=== PATIENT | male | born 1975 | race Caucasian/White ===

== ENCOUNTER 2019-02-12 11:25 | Observation (INO) | payer OTHER ==
[2019-02-12] VITALS (16 sets, daily range): BP systolic 120–184; BP diastolic 77–100
[~2019-02-12] VITALS: Ht 188 cm; Wt 140.0 kg
[2019-02-12] MEDS ORDERED: ASPIRIN 81 MG CHEW (CHILDREN'S ASA) PO ONE (12:15)
[2019-02-12] MEDS ORDERED: NITROGLYCERIN 0.4 MG SL TABS BTL 25'S SL PRN ×2 (12:15→14:45)
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
[2019-02-12 12:20] LABS: BASOPHILS % (AUTO) 0 % (0-10); EOSINOPHILS # (AUTO) 0.2 10^3/uL (0.0-0.3); EOSINOPHILS % (AUTO) 3 % (0-10); HEMATOCRIT 45 % (40-54); HEMOGLOBIN 15.3 G/DL (13.3-17.7); LYMPHOCYTES # (AUTO) 1.9 X 10^3 (1.0-4.0); LYMPHOCYTES % (AUTO) 29 % (12-44); MEAN CORPUSCULAR HEMOGLOBIN 28 PG (25-34); MEAN CORPUSCULAR HGB CONC 34 G/DL (32-36); MEAN CORPUSCULAR VOLUME 82 FL (80-99); MEAN PLATELET VOLUME 10.7 FL (7.4-10.4); MONOCYTES # (AUTO) 0.8 X 10^3 (0.0-1.0); MONOCYTES % (AUTO) 12 % (0-12); NEUTROPHILS # (AUTO) 3.7 X 10^3 (1.8-7.8); NEUTROPHILS % (AUTO) 56 % (42-75); PLATELET COUNT 243 10^3/uL (130-400); RED CELL DISTRIBUTION WIDTH 13.5 % (10.0-14.5); WHITE BLOOD COUNT 6.6 10^3/uL (4.3-11.0)
[2019-02-12 12:26] LABS: BILIRUBIN,URINE NEGATIVE (NEGATIVE); CLARITY,URINE CLEAR; COLOR,URINE YELLOW; GLUCOSE, URINE (UA) 3+ (NEGATIVE); KETONES,URINE 1+ (NEGATIVE); LEUKOCYTE ESTERASE ,URINE NEGATIVE (NEGATIVE); NITRITE,URINE NEGATIVE (NEGATIVE); PH,URINE 5 (5-9); PROTEIN,URINE 1+ (NEGATIVE); UROBILINOGEN,URINE 1 MG/DL (NORMAL)
[2019-02-12 12:32] LABS: BACTERIA,URINE NEGATIVE /HPF; WBC,URINE RARE /HPF
[2019-02-12 12:34] LABS: ALANINE AMINOTRANSFERASE 93 U/L (0-55); ALBUMIN 4.6 GM/DL (3.2-4.5); ALKALINE PHOSPHATASE 73 U/L (40-136); BILIRUBIN,TOTAL 0.7 MG/DL (0.1-1.0); BUN/CREATININE RATIO 13; CALCIUM 9.6 MG/DL (8.5-10.1); CARBON DIOXIDE 25 MMOL/L (21-32); CHLORIDE 102 MMOL/L (98-107); CREATININE SERUM 0.95 MG/DL (0.60-1.30); GFR ESTIMATED > 60; GLUCOSE 237 MG/DL (70-105); MAGNESIUM 1.8 MG/DL (1.6-2.4); SODIUM 139 MMOL/L (135-145); TOTAL PROTEIN 7.7 GM/DL (6.4-8.2)
[2019-02-12 12:35] LABS: INR 0.9 (0.8-1.4)
[2019-02-12 12:47] LABS: AMPHETAMINE SCREEN, URINE NEGATIVE (NEGATIVE); BARBITURATE SCREEN URINE NEGATIVE (NEGATIVE); BENZODIAZEPINES SCREEN URINE NEGATIVE (NEGATIVE); CANNABINOID SCREEN, URINE NEGATIVE (NEGATIVE); COCAINE SCREEN URINE NEGATIVE (NEGATIVE); METHADONE STAT NEGATIVE (NEGATIVE); METHAMPHETAMINE SCREEN URINE S NEGATIVE (NEGATIVE); OPIATE SCREEN URINE NEGATIVE (NEGATIVE); OXYCODONE STAT NEGATIVE (NEGATIVE); PROPOXYPHENE STAT NEGATIVE (NEGATIVE); TRICYCLIC ANTIDEPRESSANTS SCRE NEGATIVE (NEGATIVE)
--- NOTE | 2019-02-12 12:47 | Diagnostic Imaging Report ---
INDICATION: Chest pain. Time of exam 12:22 PM Correlation is made with prior chest 05/25/2016. The heart size is normal. The pulmonary vascularity is unremarkable. The lungs are clear. No infiltrate, effusion or pneumothorax is detected. Impression: No acute cardiopulmonary process is detected. Dictated by: Dictated on workstation # [id number]
[2019-02-12] MEDS ORDERED: CATHETER FLUSH 10 ML SYR IV PRN (14:45)
[2019-02-12] MEDS ORDERED: ACETAMINOPHEN 500 MG TAB (TYLENOL) PO PRN (14:45)
--- NOTE | 2019-02-12 15:08 | NUR ---
HUMPHREY LOZANO admitted to room 409-1, with an admitting diagnosis of chest pain, on 02/12/19 from ED via wheelchair, accompanied by staff. HUMPHREY LOZANO introduced to surroundings, call light, bed controls, phone, TV, temperature control, lights, meal times, smoking policy, visitor policy, side rail policy, bathrooms and showers. Patient Rights given to patient in the handbook. HUMPHREY LOZANO verbalizes understanding that [facility] is not responsible for the loss or damage to any personal effects or valuables that are kept in the patients possession during their hospitalization. The following Patient Care Plans were discussed with the patient: Discharge Planning, pain management, medications, and dehydration. HUMPHREY LOZANO verbalizes understanding of Interdisciplinary Patient Education. Patient and/or family were informed about the Rapid Response Team and its purpose.
[2019-02-12] MEDS: inSUlin ASPART (NovoLOG) 1 UNIT/0.01 ML (CHARGE PER UNIT) SC SCH ×2 (16:33→22:11)
[2019-02-12] MEDS: morphine INJ 10 MG/ML 1ML (SYR OR VIAL) IV PRN ×2 (17:21→22:30)
[2019-02-12] MEDS: meTOprolol TARTRATE 25 MG (LOPRESSOR) TABLET PO SCH (22:10)
[2019-02-12] MEDS: CATHETER FLUSH 10 ML SYR IV SCH (22:12)
[2019-02-13 00:45] VITALS: BP 111/64
[2019-02-13 04:30] VITALS: BP 117/62
[2019-02-13 06:54] LABS: BASOPHILS % (AUTO) 0 % (0-10); EOSINOPHILS # (AUTO) 0.3 10^3/uL (0.0-0.3); EOSINOPHILS % (AUTO) 4 % (0-10); HEMATOCRIT 43 % (40-54); HEMOGLOBIN 14.3 G/DL (13.3-17.7); LYMPHOCYTES # (AUTO) 2.5 X 10^3 (1.0-4.0); LYMPHOCYTES % (AUTO) 36 % (12-44); MEAN CORPUSCULAR HEMOGLOBIN 28 PG (25-34); MEAN CORPUSCULAR HGB CONC 34 G/DL (32-36); MEAN CORPUSCULAR VOLUME 82 FL (80-99); MEAN PLATELET VOLUME 10.6 FL (7.4-10.4); MONOCYTES # (AUTO) 0.6 X 10^3 (0.0-1.0); MONOCYTES % (AUTO) 9 % (0-12); NEUTROPHILS # (AUTO) 3.5 X 10^3 (1.8-7.8); NEUTROPHILS % (AUTO) 51 % (42-75); PLATELET COUNT 230 10^3/uL (130-400); RED CELL DISTRIBUTION WIDTH 13.6 % (10.0-14.5); WHITE BLOOD COUNT 6.8 10^3/uL (4.3-11.0)
[2019-02-13 07:25] LABS: ALANINE AMINOTRANSFERASE 80 U/L (0-55); ALBUMIN 3.9 GM/DL (3.2-4.5); ALKALINE PHOSPHATASE 59 U/L (40-136); BILIRUBIN,TOTAL 0.7 MG/DL (0.1-1.0); BUN/CREATININE RATIO 15; CALCIUM 8.9 MG/DL (8.5-10.1); CARBON DIOXIDE 25 MMOL/L (21-32); CHLORIDE 103 MMOL/L (98-107); CHOLESTEROL 146 MG/DL (< 200); CREATININE SERUM 0.81 MG/DL (0.60-1.30); GFR ESTIMATED > 60; GLUCOSE 266 MG/DL (70-105); HDL CHOLESTEROL 49 MG/DL (40-60); POTASSIUM 4.1 MMOL/L (3.6-5.0); SODIUM 137 MMOL/L (135-145); TOTAL PROTEIN 6.7 GM/DL (6.4-8.2); TRIGLYCERIDES 64 MG/DL (<150); VLDL CHOLESTEROL 13 MG/DL (5-40)
[2019-02-13 07:32] VITALS: BP 117/58
[2019-02-13] MEDS: inSUlin ASPART (NovoLOG) 1 UNIT/0.01 ML (CHARGE PER UNIT) SC SCH ×4 (07:42→20:25)
[2019-02-13] MEDS: CATHETER FLUSH 10 ML SYR IV SCH ×3 (07:43→22:40)
--- NOTE | 2019-02-13 09:30 | Consultation-Cardiology ---
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 He reports he woke up yesterday morning and began to have left sided chest pain which he describes as a squeezing, sharp stabbing, heaviness type of pain. He reports it was constant and would wax and wane. He states had similar discomfort on and Wednesday, but he went to sleep and it went away. He states activity would make it worse. He reports some diaphoresis with the discomfort. He states it improved with the administration of morphine. He reports the pain has never gone away completely and the right arm numbness has also persisted. He denies any LE swelling. No c/o fever or chills. No c/o n/v/d. No c/o palpitations, syncope or near syncope. His significant other is at the bedside. Review of Systems-Cardiology Review of Systems Constitutional: No chills, No fever Eyes: No vision change Ears/Nose/Throat: No epistaxis, No recent hearing loss Respiratory: As described under HPI Cardiovascular: As described under HPI Gastrointestinal: No constipation, No diarrhea, No nausea, No vomiting Genitourinary: No dysuria, No hematuria Musculoskeletal: As describe under HPI Skin: No rash on exposed areas, No ulcerations on exposed areas Psychiatric/Neurological: No focal weakness, No syncope Hematologic: No bleeding abnormalities WHS-Icynjx-Zcsjyy Hx Patient Social History Alcohol Use: Denies Use Recreational Drug Use: No Smoking Status: Never a Smoker Recent Foreign Travel: No Recent Infectious Disease Expo: No Hospitalization with Isolation: Denies Immunizations Up To Date Date of Influenza Vaccine: Feb 07, 2019 Past Medical History PMH As described under Assessment. Family Medical History Family Medical History: He reports his mother has CAD, diagnosed at age 40, with 5 stents placed. He reports she also has PVD, smokes. He reports his father had PVD, smokes as well. Allergies and Home Medications Allergies Coded Allergies: Penicillins (Verified Allergy, Unknown, Hives, 02/12/19) PER PATIENT REPORT lisinopril (Verified Allergy, Unknown, Hives, 02/12/19) PATIENT REPORTS HIVES Home Medications Insulin Degludec 100 Unit/1 Ml Insuln.pen, 18 UNIT SQ HS, (Reported) Metformin HCl 500 Mg Tab.er.24h, 2,000 MG PO DAILY, (Reported) TAKES 4 (500MG) TABLETS Sitagliptin Phosphate 100 Mg Tablet, 100 MG PO DAILY, (Reported) Physical Exam-Cardiology Physical Exam Vital Signs/I&O 02/13/19 02/13/19 02/14/19 02/14/19 20:30 20:31 00:20 01:00 Temp 36.5 36.0 Pulse 73 70 52 Resp 20 20 B/P (MAP) 135/78 (97) 110/59 (76) Pulse Ox 95 95 92 O2 Delivery Room Air Room Air Room Air 02/14/19 02/14/19 02/14/19 03:50 07:39 07:39 Temp 36.6 35.7 35.7 Pulse 58 62 62 Resp 20 14 14 B/P (MAP) 120/60 (80) 118/78 (91) 118/78 (91) Pulse Ox 95 95 95 O2 Delivery Room Air Room Air Room Air 02/14/19 00:00 Intake Total 1250 ml Balance 1250 ml Capillary Refill : Less Than 3 Seconds Constitutional: AAO x 3; No apparent distress; well-developed, well-nourished HEENT: PERRL, hearing is well preserved, oral hygience is good Neck: No carotid bruit; carotid pulses are 2 + bilaterally Respiratory: No accessory muscle use, No respiratory distress; chest expansion is symmetric, chest is bilaterally symmetric, lungs clear to auscultation Cardiovascular: regular rate-rhythm; No JVD; S1 and S2 Gastrointestinal: No tender; soft, round, audible bowel sounds Rectal: deferred Extremities: no lower extremity edema bilateral Neurologic/Psychiatric: grossly intact, power is 5/5 both on sides Skin: No rash on exposed areas, No ulcerations on exposed areas Data Review Labs Laboratory Tests 02/13/19 10:44: Glucometer 196H 02/13/19 15:39: Glucometer 223H 02/14/19 05:10: White Blood Count 7.1, Red Blood Count 5.02, Hemoglobin 14.0, Hematocrit 42, Mean Corpuscular Volume 83, Mean Corpuscular Hemoglobin 28, Mean Corpuscular Hemoglobin Concent 34, Red Cell Distribution Width 13.5, Platelet Count 218, Mean Platelet Volume 10.5H, Erythrocyte Sedimentation Rate 6, Sodium Level 136, Potassium Level 4.2, Chloride Level 103, Carbon Dioxide Level 24, Anion Gap 9, Blood Urea Nitrogen 14, Creatinine 0.81, Estimat Glomerular Filtration Rate > 60, BUN/Creatinine Ratio 17, Glucose Level 208H, Calcium Level 9.0, Corrected Calcium 9.0, Total Bilirubin 0.7, Aspartate Amino Transf (AST/SGOT) 30, Alanine Aminotransferase (ALT/SGPT) 77H, Alkaline Phosphatase 63, Total Protein 6.5, Albumin 4.0 Radiology NAME: HUMPHREY PICKERING [facility] REC#: [id number] PT STATUS: REG ER : 1975 PHYSICIAN: JOE BECKFORD MD ADMIT DATE: 02/12/19/ER Signed Date of Exam: 02/12/19 CHEST 1 VIEW, AP/PA ONLY INDICATION: Chest pain. Time of exam 12:22 PM Correlation is made with prior chest 05/25/2016. The heart size is normal. The pulmonary vascularity is unremarkable. The lungs are clear. No infiltrate, effusion or pneumothorax is detected. Impression: No acute cardiopulmonary process is detected. Dictated by: Dictated on workstation # [id number] Dict: 02/12/19 1242 Trans: 02/12/19 1253 Interpreted by: CYNDEE BARTLETT MD Electronically signed by: CYNDEE BARTLETT MD 02/12/19 1253 ECG Impression ECG Initial ECG Rhythm: Normal Sinus A/P-Cardiology Assessment/Admission Diagnosis Chest pain with associated left arm numbness of undetermined etiology Reports cardiac cath in [address] Samaniego at [place] in [place], [place] - reported normal per pt H/O lower back surgery in [place], [place] d/t bulging disc dz DM 2 H/O right inguinal hernia repair H/O "fatty liver disease" with chronically elevated liver enzymes Chew tobacco use H/O right ankle surgery H/O ETOH abuse - reports quit 3 weeks ago Family h/o premature CAD, PVD (mother in her 40's) Discussion and Recomendations Chest pain of undetermined etiology - no evidence of ACS Request records from Dr. Samaniego cardiac cath from approx 2 years ago Echocardiogram to eval structure and function Monitor lab Further recs will be based on his hospital course Advise tobacco cessation We would like to thank medical services for this consult Clinical Quality Measures AMI/AHF: ASA po Prior to arrival: Yes (81MG) DVT/VTE Risk/Contraindication: Risk Factor Score Per Nursin RFS Level Per Nursing on Admit: 2=Moderate GRISELDA AUGUSTIN Feb 13, 2019 09:30
[2019-02-13] MEDS: ASPIRIN E.C. 81 MG (ECOTRIN) TAB PO SCH (09:34)
[2019-02-13] MEDS: lisINopril 5 MG (PRINIVIL) TABLET PO SCH (09:34)
[2019-02-13] MEDS: meTOprolol TARTRATE 25 MG (LOPRESSOR) TABLET PO SCH ×2 (09:34→20:14)
[2019-02-13] MEDS: morphine INJ 10 MG/ML 1ML (SYR OR VIAL) IV PRN ×3 (10:15→20:25)
[2019-02-13] MEDS ORDERED: REGADENOSON 0.4 MG/5 ML SYR (LEXISCAN) IV ONE (11:00)
[2019-02-13] MEDS ORDERED: SITA100T12 PO (11:12)
[2019-02-13] MEDS ORDERED: INSU100I32 SQ (11:12)
[2019-02-13] MEDS ORDERED: METF500T8 PO (11:12)
[2019-02-13] MEDS ORDERED: NS 100 ML (IVPB) BAG IV ONE (11:15)
[2019-02-13] MEDS ORDERED: IOHEXOL 350 MG/ML 150 ML (OMNIPAQUE 350) VIAL IV ONE (11:15)
[2019-02-13] MEDS ORDERED: HOLD METFORMIN - RECEIVED CONTRAST 20 ML VIAL IV SCH (11:15)
--- NOTE | 2019-02-13 11:16 | NUR ---
SPOKE WITH THE PATIENT ABOUT HIS MEDICATIONS. HE LISTED WHAT HE IS TAKING AND I CALLED BRIEN IN [place] TO VERIFY. 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
[2019-02-13 12:00] VITALS: BP 118/60
--- NOTE | 2019-02-13 12:48 | Consultation-Cardiology ---
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 He reports he woke up yesterday morning and began to have left sided chest pain which he describes as a squeezing, sharp stabbing, heaviness type of pain. He reports it was constant and would wax and wane. Worse with deep breathing. He states had similar discomfort on and Wednesday, but he went to sleep and it went away. He states activity would make it worse. He reports some diaphoresis with the discomfort. He states it improved with the administration of morphine. He reports the pain has never gone away completely and the right arm numbness has also persisted. He denies any LE swelling. No c/o fever or chills. No c/o n/v/d. No c/o palpitations, syncope or near syncope. His significant other is at the bedside. Review of Systems-Cardiology Review of Systems Constitutional: No chills, No fever Eyes: No vision change Ears/Nose/Throat: No epistaxis, No recent hearing loss Respiratory: As described under HPI Cardiovascular: As described under HPI Gastrointestinal: No constipation, No diarrhea, No nausea, No vomiting Genitourinary: No dysuria, No hematuria Musculoskeletal: As describe under HPI Skin: No rash on exposed areas, No ulcerations on exposed areas Psychiatric/Neurological: No focal weakness, No syncope Hematologic: No bleeding abnormalities [id number]-Noyidk Hx Patient Social History Alcohol Use: Denies Use Recreational Drug Use: No Smoking Status: Never a Smoker Recent Foreign Travel: No Recent Infectious Disease Expo: No Hospitalization with Isolation: Denies Immunizations Up To Date Date of Influenza Vaccine: Feb 07, 2019 Past Medical History PMH As described under Assessment. Family Medical History Family Medical History: He reports his mother has CAD, diagnosed at age 40, with 5 stents placed. He reports she also has PVD, smokes. He reports his father had PVD, smokes as well. Allergies and Home Medications Allergies Coded Allergies: Penicillins (Verified Allergy, Unknown, Hives, 02/12/19) PER PATIENT REPORT lisinopril (Verified Allergy, Unknown, Hives, 02/12/19) PATIENT REPORTS HIVES Home Medications Insulin Degludec 100 Unit/1 Ml Insuln.pen, 18 UNIT SQ HS, (Reported) Metformin HCl 500 Mg Tab.er.24h, 2,000 MG PO DAILY, (Reported) TAKES 4 (500MG) TABLETS Sitagliptin Phosphate 100 Mg Tablet, 100 MG PO DAILY, (Reported) Patient Home Medication List Home Medication List Reviewed: Yes Physical Exam-Cardiology Physical Exam Vital Signs/I&O 02/13/19 02/13/19 02/13/19 02/13/19 00:45 01:00 04:30 07:00 Temp 36.0 35.4 Pulse 63 64 64 58 Resp 20 20 B/P (MAP) 111/64 (80) 117/62 (80) Pulse Ox 96 96 O2 Delivery Room Air Room Air 02/13/19 07:32 Temp 36.3 Pulse 58 Resp 17 B/P (MAP) 117/58 (77) Pulse Ox 93 O2 Delivery Room Air 02/13/19 00:00 Intake Total 800 ml Balance 800 ml Capillary Refill : Less Than 3 Seconds Constitutional: AAO x 3; No apparent distress; well-developed, well-nourished HEENT: PERRL, hearing is well preserved, oral hygience is good Neck: No carotid bruit; carotid pulses are 2 + bilaterally Respiratory: No accessory muscle use, No respiratory distress; chest expansion is symmetric, chest is bilaterally symmetric, lungs clear to auscultation Cardiovascular: regular rate-rhythm; No JVD; S1 and S2 Gastrointestinal: No tender; soft, round, audible bowel sounds Rectal: deferred Extremities: no lower extremity edema bilateral Neurologic/Psychiatric: grossly intact, power is 5/5 both on sides Skin: No rash on exposed areas, No ulcerations on exposed areas Data Review Labs Laboratory Tests 02/12/19 16:23: Glucometer 190H 02/12/19 17:50: Troponin I < 0.028 02/12/19 21:28: Glucometer 214H 02/13/19 00:25: Troponin I < 0.028 02/13/19 04:04: Glucometer 319H 02/13/19 06:15: White Blood Count 6.8, Red Blood Count 5.19, Hemoglobin 14.3, Hematocrit 43, Mean Corpuscular Volume 82, Mean Corpuscular Hemoglobin 28, Mean Corpuscular Hemoglobin Concent 34, Red Cell Distribution Width 13.6, Platelet Count 230, Mean Platelet Volume 10.6H, Neutrophils (%) (Auto) 51, Lymphocytes (%) (Auto) 36, Monocytes (%) (Auto) 9, Eosinophils (%) (Auto) 4, Basophils (%) (Auto) 0, Neutrophils # (Auto) 3.5, Lymphocytes # (Auto) 2.5, Monocytes # (Auto) 0.6, Eosinophils # (Auto) 0.3, Basophils # (Auto) 0.0, Sodium Level 137, Potassium Level 4.1, Chloride Level 103, Carbon Dioxide Level 25, Anion Gap 9, Blood Urea Nitrogen 12, Creatinine 0.81, Estimat Glomerular Filtration Rate > 60, BUN/Creatinine Ratio 15, Glucose Level 266H, Calcium Level 8.9, Corrected Calc ium 9.0, Total Bilirubin 0.7, Aspartate Amino Transf (AST/SGOT) 36H, Alanine Aminotransferase (ALT/SGPT) 80H, Alkaline Phosphatase 59, Total Protein 6.7, Albumin 3.9, Triglycerides Level 64, Cholesterol Level 146, LDL Cholesterol Direct 86, VLDL Cholesterol 13, HDL Cholesterol 49 02/13/19 06:18: Glucometer 243H 02/13/19 10:44: Glucometer 196H Laboratory Tests 02/12/19 11:34 02/13/19 06:15 A/P-Cardiology Assessment/Admission Diagnosis Pleuritic chest pain of undetermined etiology Reports cardiac cath in or around [address] Samaniego at [facility] in [place], [place] - reported normal per pt H/O lower back surgery in [place], [place] d/t bulging disc dz DM 2 H/O right inguinal hernia repair H/O "fatty liver disease" with chronically elevated liver enzymes Chew tobacco use H/O right ankle surgery H/O ETOH abuse - reports quit 3 weeks ago Family h/o premature CAD, PVD (mother in her 40's) Discussion and Recomendations * Request records from Dr. Samaniego cardiac cath from approx 2 years ago * Echocardiogram to eval structure and function * Monitor lab * Pulm CT angio to eval for pulm sources of chest discomfort * Consider MPI to eval for coronary source of chest pain * Advise tobacco cessation Clinical Quality Measures AMI/AHF: ASA po Prior to arrival: Yes (81MG) DVT/VTE Risk/Contraindication: Risk Factor Score Per Nursin RFS Level Per Nursing on Admit: 2=Moderate JAIRO BERRY MD FACP FACC CCDS Feb 13, 2019 12:48
--- NOTE | 2019-02-13 14:45 | Diagnostic Imaging Report ---
PROCEDURE: CT angiography of the chest with contrast. TECHNIQUE: Multiple contiguous axial images were obtained through the chest after uneventful bolus administration of intravenous contrast. 3D reconstructed CTA MIP acquisitions were also performed. Auto Exposure Controls were utilized during the CT exam to meet ALARA standards for radiation dose reduction. INDICATION: Chest pain and left arm pain. COMPARISON: No prior studies are available for comparison. FINDINGS: Evaluation of the pulmonary arterial system is without thromboembolism. No filling defects are seen within the central, lobar or segmental branches. The thoracic aorta is normal caliber. No dissection is seen. No pericardial or pleural fluid is identified. No pulmonary infiltrates or masses are seen. No axillary lymphadenopathy is identified. No definite mediastinal or hilar lymphadenopathy is detected. There is a questionable nodule in the right infrahilar region near the right inferior pulmonary vein measuring 16 mm. This is similar to prior CT abdomen and pelvis studies. Follow-up would be still be recommended. Upper abdomen is unremarkable. IMPRESSION: 1. No evidence of pulmonary embolism or thoracic aortic dissection. 2. No evidence of pulmonary infiltrates. 3. There is a rounded nodular density adjacent to the right inferior pulmonary vein measuring 16 mm, indeterminate. Follow-up CT chest in four to six months is recommended to confirm stability. Dictated by: Dictated on workstation # [id number]
--- NOTE | 2019-02-13 14:46 | History & Physical-Hospitalist ---
History of Present Illness HPI/Chief Complaint Lester Pickering is a 43yoM with PMH T2DM who presented with chest pain. He reports that he has been having pain with radiation to his arm, neck, and jaw. He reports some dyspnea associated with it. He denies nausea, vomiting, and diaphoresis. He reports that the pain is worsened by activity and improves when he rests. He has a history of a heart cath a couple years ago which was reportedly normal. 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 He denies leg swelling and pleuritic chest pain. He reports that he felt like he was having a "panic attack". Source: patient Date Seen 02/13/19 Time Seen by a Provider: 09:50 Attending Physician Lenora Paul MD PCP No,Local Physician Referring Physician JAIRO BERRY MD FACP FAC CCDS Date of Admission Feb 12, 2019 at 13:50 Home Medications & Allergies Home Medications Reviewed patient Home Medication Reconciliation performed by pharmacy medication reconciliations fresh foods technician and/or nursing. Patients Allergies have been reviewed. Allergies Allergies Coded Allergies Penicillins (Verified Allergy, Unknown, Hives, 02/12/19) PER PATIENT REPORT lisinopril (Verified Allergy, Unknown, Hives, 02/12/19) PATIENT REPORTS HIVES Past Witmkra-Cxxhqs-Zsmbfl Hx Past Med/Social Hx: Reviewed Nursing Past Med/Soc Hx Patient Social History Alcohol Use: Denies Use Recreational Drug Use: No Smoking Status: Never a Smoker Recent Foreign Travel: No Contact w/other who traveled: No Recent Hopitalizations: No Recent Infectious Disease Expo: No Immunizations Up To Date Date of Influenza Vaccine: Feb 07, 2019 Seasonal Allergies Seasonal Allergies: No Past Medical History Musculoskeletal: Arthritis Endocrine: Diabetes, Insulin dep History of Blood Disorders: No Review of Systems Constitutional: no symptoms reported EENTM: no symptoms reported Respiratory: no symptoms reported Cardiovascular: chest pain Gastrointestinal: no symptoms reported Genitourinary: no symptoms reported Musculoskeletal: no symptoms reported Skin: no symptoms reported Psychiatric/Neurological: No Symptoms Reported Physical Exam Physical Exam Vital Signs Vital Signs - First Documented 02/12/19 11:30 Temp 36.3 Pulse 85 Resp 19 B/P (MAP) 171/95 (120) Pulse Ox 95 O2 Delivery Room Air Capillary Refill : Less Than 3 Seconds Height, Weight, BMI Height: '" Weight: lbs. oz. kg; 39.61 BMI Method: General Appearance: No Apparent Distress, WD/WN, Obese HEENT: PERRL/EOMI, Pharynx Normal Neck: Normal Inspection, Supple Respiratory: No Chest Non Tender; Lungs Clear, Normal Breath Sounds, No Respiratory Distress Cardiovascular: Regular Rate, Rhythm, No Edema, No Murmur Gastrointestinal: Normal Bowel Sounds, Non Tender, Soft Extremity: Normal Inspection, Non Tender, No Pedal Edema Neurologic/Psychiatric: Alert, Oriented x3 Skin: Normal Color, Warm/Dry Lymphatic: No Adenopathy Results Results/Procedures Labs Laboratory Tests 02/12/19 11:34 02/13/19 06:15 Patient resulted labs reviewed. Imaging: Reviewed Imaging Report Assessment/Plan Admission Diagnosis Chest pain Admission Status: Observation Reason for Inpatient Admission: Rule out acute coronary syndrome Assessment and Plan Chest pain -Troponins remain normal -EKG sinus rhythm without ST-T changes -Cardiology consulted, appreciate recommendations -TTE normal, incidental liver lesion noted -D-dimer negative -CT chest with contrast to further evaluate for PE -Possible stress test tomorrow HTN -BP elevated on admission -Started on Lisinopril and Metoprolol Liver lesion Elevated LFTs -TTE with incidental liver lesion -Follow up CT, consider further imaging -LFTs mildly elevated, reportedly history of fatty liver T2DM -Levemir 10 units nightly -SSI DVT prophylaxis: Lovenox Diagnosis/Problems Diagnosis/Problems (1) Chest pain Status: Acute Qualifiers: Chest pain type: unspecified Qualified Codes: R07.9 - Chest pain, unspecified (2) HTN (hypertension) Status: Chronic (3) T2DM (type 2 diabetes mellitus) Status: Chronic Qualifiers: Diabetes mellitus residential insulin use: with terminal superintendent use (4) Liver lesion Status: Acute (5) Elevated LFTs Status: Acute Clinical Quality Measures AMI/AHF: ASA po Prior to arrival: Yes (81MG) DVT/VTE Risk/Contraindication: Risk Factor Score Per Nursin RFS Level Per Nursing on Admit: 2=Moderate ANAHI PADILLA MD Feb 13, 2019 14:46
[2019-02-13 16:00] VITALS: BP 119/76
[2019-02-13] MEDS: ONDANSETRON 4 MG/2 ML (SDV) Z0FRAN IV PRN ×2 (16:57→20:24)
[2019-02-13 20:31] VITALS: BP 135/78
[2019-02-13] MEDS ORDERED: MELATONIN 3 MG TABLET PO SCH (21:00)
[2019-02-13] MEDS ORDERED: ENOXAPARIN 40 MG/0.4 ML (LOVENOX) SYR SC SCH (21:00)
[2019-02-14 00:20] VITALS: BP 110/59
[2019-02-14 03:50] VITALS: BP 120/60
[2019-02-14 05:42] LABS: MEAN PLATELET VOLUME 10.5 FL (7.4-10.4); RED CELL DISTRIBUTION WIDTH 13.5 % (10.0-14.5); WHITE BLOOD COUNT 7.1 10^3/uL (4.3-11.0)
[2019-02-14] MEDS: CATHETER FLUSH 10 ML SYR IV SCH ×2 (05:42→14:17)
[2019-02-14] MEDS: inSUlin ASPART (NovoLOG) 1 UNIT/0.01 ML (CHARGE PER UNIT) SC SCH ×3 (05:43→17:11)
[2019-02-14 06:03] LABS: ALANINE AMINOTRANSFERASE 77 U/L (0-55); ALKALINE PHOSPHATASE 63 U/L (40-136); BILIRUBIN,TOTAL 0.7 MG/DL (0.1-1.0); BUN/CREATININE RATIO 17; CARBON DIOXIDE 24 MMOL/L (21-32); CHLORIDE 103 MMOL/L (98-107); CREATININE SERUM 0.81 MG/DL (0.60-1.30); GFR ESTIMATED > 60; GLUCOSE 208 MG/DL (70-105); POTASSIUM 4.2 MMOL/L (3.6-5.0); SODIUM 136 MMOL/L (135-145); TOTAL PROTEIN 6.5 GM/DL (6.4-8.2)
[2019-02-14 07:39] VITALS: BP 118/78
[2019-02-14] MEDS ORDERED: REGADENOSON 0.4 MG/5 ML SYR (LEXISCAN) IV ONE ×2 (08:37→09:30)
[2019-02-14] MEDS: ASPIRIN E.C. 81 MG (ECOTRIN) TAB PO SCH (10:57)
[2019-02-14] MEDS: meTOprolol TARTRATE 25 MG (LOPRESSOR) TABLET PO SCH (10:57)
[2019-02-14] MEDS: lisINopril 5 MG (PRINIVIL) TABLET PO SCH ×2 (10:57→10:59)
--- NOTE | 2019-02-14 10:59 | NUR ---
Patient states that lisinopril causes him to have hives. Medication non administered.
[2019-02-14 11:05] VITALS: BP 137/78
[2019-02-14] MEDS: morphine INJ 10 MG/ML 1ML (SYR OR VIAL) IV PRN (12:01)
--- NOTE | 2019-02-14 13:10 | Progress Note - Cardiology ---
Cardiology SOAP Progress Note Subjective: Continues to report chest discomfort, unchanged from yesterday. No c/o dyspnea, palpitations, syncope or near syncope. Objective: I&O/Vital Signs 02/14/19 02/14/19 02/14/19 02/14/19 06:51 07:39 07:39 08:00 Temp 35.7 35.7 Pulse 59 62 62 Resp 14 14 B/P (MAP) 118/78 (91) 118/78 (91) Pulse Ox 95 95 99 O2 Delivery Room Air Room Air Room Air 02/14/19 02/14/19 02/14/19 02/14/19 11:05 11:05 12:48 15:49 Temp 35.8 35.8 35.8 Pulse 59 59 62 64 Resp 16 16 16 B/P (MAP) 137/78 (97) 139/78 (98) Pulse Ox 99 99 98 O2 Delivery Room Air Room Air Room Air 02/14/19 17:12 B/P (MAP) 02/14/19 00:00 Intake Total 1250 ml Balance 1250 ml Constitutional: AAO x 3; No apparent distress; well-developed, well-nourished Respiratory: No accessory muscle use, No respiratory distress; chest expansion is symmetric, chest is bilaterally symmetric, lungs clear to auscultation Cardiovascular: regular rate-rhythm; No JVD; S1 and S2 Gastrointestional: No tender; soft, round, audible bowel sounds Extremities: no lower extremity edema bilateral Neurologic/Psychiatric: grossly intact, power is 5/5 both on sides Skin: No rash on exposed areas, No ulcerations on exposed areas Results/Procedures: Labs Laboratory Tests 02/14/19 05:10: White Blood Count 7.1, Red Blood Count 5.02, Hemoglobin 14.0, Hematocrit 42, Mean Corpuscular Volume 83, Mean Corpuscular Hemoglobin 28, Mean Corpuscular Hemoglobin Concent 34, Red Cell Distribution Width 13.5, Platelet Count 218, Mean Platelet Volume 10.5H, Erythrocyte Sedimentation Rate 6, Sodium Level 136, Potassium Level 4.2, Chloride Level 103, Carbon Dioxide Level 24, Anion Gap 9, Blood Urea Nitrogen 14, Creatinine 0.81, Estimat Glomerular Filtration Rate > 60, BUN/Creatinine Ratio 17, Glucose Level 208H, Calcium Level 9.0, Corrected Calcium 9.0, Total Bilirubin 0.7, Aspartate Amino Transf (AST/SGOT) 30, Alanine Aminotransferase (ALT/SGPT) 77H, Alkaline Phosphatase 63, Total Protein 6.5, Albumin 4.0 Procedures NAME: [facility] REC#: [id number] PT STATUS: ADM Vivienne : 1975 PHYSICIAN: GRISELDA AUGUSTIN ADMIT DATE: 02/12/19 Signed Date of Exam: 02/13/19 CT ANGIO CHEST W PROCEDURE: CT angiography of the chest with contrast. TECHNIQUE: Multiple contiguous axial images were obtained through the chest after uneventful bolus administration of intravenous contrast. 3D reconstructed CTA MIP acquisitions were also performed. Auto Exposure Controls were utilized during the CT exam to meet ALARA standards for radiation dose reduction. INDICATION: Chest pain and left arm pain. COMPARISON: No prior studies are available for comparison. FINDINGS: Evaluation of the pulmonary arterial system is without thromboembolism. No filling defects are seen within the central, lobar or segmental branches. The thoracic aorta is normal caliber. No dissection is seen. No pericardial or pleural fluid is identified. No pulmonary infiltrates or masses are seen. No axillary lymphadenopathy is identified. No definite mediastinal or hilar lymphadenopathy is detected. There is a questionable nodule in the right infrahilar region near the right inferior pulmonary vein measuring 16 mm. This is similar to prior CT abdomen and pelvis studies. Follow-up would be still be recommended. Upper abdomen is unremarkable. IMPRESSION: 1. No evidence of pulmonary embolism or thoracic aortic dissection. 2. No evidence of pulmonary infiltrates. 3. There is a rounded nodular density adjacent to the right inferior pulmonary vein measuring 16 mm, indeterminate. Follow-up CT chest in four to six months is recommended to confirm stability. Dictated by: Dictated on workstation # [id number] Dict: 02/13/19 1437 Trans: 02/13/19 2887 Interpreted by: CYNDEE BARTLETT MD Electronically signed by: CYNDEE BARTLETT MD 02/13/19 9700 A/P: Assessment: Pleuritic chest pain of undetermined etiology, now resolved Reports cardiac cath in or around [address] Samaniego at [facility] in [place], [place] - reported normal per pt Echocardiogram of 02-13-19 showed LVEF 55-60%. Incidental note of a solid lesion in the liver which we have reported to Dr. Malin of the Hospitalist Service and to the patient himself CTA chest of 02/13/19: No evidence of pulmonary embolism or thoracic aortic dissection. No evidence of pulmonary infiltrates. There is a rounded nodular density adjacent to the right inferior pulmonary vein measuring 16 mm, indeterminate. Follow-up CT chest in four to six months is recommended to confirm stability MPI of 02/14/19: no ischemia or infarction, mild cardiomegaly, LVEF 43% (although appears higher, subjectively) H/O lower back surgery in [place], [place] d/t bulging disc dz DM 2 H/O right inguinal hernia repair H/O "fatty liver disease" with chronically elevated liver enzymes Chew tobacco use H/O right ankle surgery H/O ETOH abuse - reports quit 3 weeks ago Family h/o premature CAD, PVD (mother in her 40's) Plan: * Request records from Dr. Samaniego cardiac cath from approx 2 years ago * MPI - pending * Continue current medication regimen * Advise tobacco cessation Physician Assessment Physician Assessment No cp Shortness of breath at usual baseline No palp or syncope Lungs: dec bs at bases Cor: reg Ext: mild edema A&R * As documented in our note above that I updated (italics) and as noted below * I made him aware of his mild cardiomegaly and of his LV function that appears at lower limit of normal. We have advised avoidance of alcohol and consideration of sleep studies. We have also advised Cardiology f/u * I made him and his aware of hepatic and pulmonary lesions (see above) yesterday and advised further work up. I again made him and his of aware of these today and advised further work up with his regular physicians. I have communicated this to Dr Malin of the Hospitalist [facility]. The patient does understand all these issues and has assured us that he will f/u on all of the above urgently after discharge Clinical Quality Measures AMI/AHF: ASA po Prior to arrival: Yes (81MG) GRISELDA AUGUSTIN TIMBER MANAGEMENT PROFESSOR Feb 14, 2019 13:10 JAIRO BERRY MD FACP FAC CCDS Feb 14, 2019 17:32
[2019-02-14 15:49] VITALS: BP 139/78
[2019-02-14] MEDS ORDERED: ATOR40TA PO (16:54)
[2019-02-14] MEDS ORDERED: METO-333 PO (16:54)
--- NOTE | 2019-02-14 16:57 | Discharge Instructions ---
Discharge Instructions Discharge Medications New, Converted or Re-Newed RX: RX Given to Pt/Family Patient Instructions Patient Instructions Take medications as prescribed. Follow up with your PCP. You will need either an MRI or triple phase CT of your liver to further evaluate the lesion. You will also need a repeat chest CT to follow up the enlarged lymph node. Return to The Hospital For: chest pain, shortness of breath, or if you feel like you are getting worse. Activity & Diet Discharge Diet: No Restrictions Activity as Tolerated: Yes ANAHI PADILLA MD Feb 14, 2019 16:57
--- NOTE | 2019-02-14 20:34 | STRESS TEST ---
DATE OF SERVICE: 02/14/2019 RESTING AND POST REGADENOSON TECHNETIUM-99M TETROFOSMIN SPECT CT IMAGING ORDERING PHYSICIAN: Ethel Sandoval APRN ATTENDING PHYSICIAN: Nithya Paul. CLINICAL DIAGNOSIS: Chest discomfort. Baseline images were carried out after injection of 11 mCi of technetium-99m Tetrofosmin. This was followed by 0.4 mg Regadenoson and 30 mCi of technetium-99m Tetrofosmin for stress imaging. The electrocardiogram showed sinus rhythm at baseline. It did not change significantly with Regadenoson infusion. The patient tolerated the procedure well. Review of images at rest and following stress does not indicate any significant perfusion defects consistent with significant myocardial ischemia or infarction. Gated images show well preserved global left ventricular systolic function with a calculated ejection fraction of 43%. Subjectively, the ejection fraction appears somewhat higher than this. Left ventricular end diastolic volume is 136 mL. TID is absent (1.04). CONCLUSIONS: 1. No evidence of any significant myocardial ischemia or infarction on this study. 2. Mild cardiomegaly. 3. Well preserved global left ventricular systolic function with a calculated ejection fraction of 43% (subjectively, somewhat higher than this). Job ID: [id number] DocumentID: [id number] Dictated Date: 02/14/2019 16:30:41 Electronics Mechanic Date: 02/14/2019 20:32:33 Dictated By: JAIRO BERRY MD, MA, FACP, FACC, MTDD
--- NOTE | 2019-02-14 20:53 | Discharge Summary ---
Discharge Summary Hospital Course Problems/Dx: (1) Chest pain Status: Acute Qualifiers: Qualified Codes: R07.9 - Chest pain, unspecified (2) HTN (hypertension) Status: Chronic (3) T2DM (type 2 diabetes mellitus) Status: Chronic Qualifiers: (4) Liver lesion Status: Acute (5) Elevated LFTs Status: Acute Hospital Course Date of Admission: Feb 12, 2019 at 13:50 Admission Diagnosis : Chest pain Family Physician/Provider: FelicitaLocal Physician Date of Discharge: 02/14/19 Discharge Diagnosis: Chest pain Hospital Course: Lester Pickering is a 43yoM who presented with chest pain. He underwent an ischemic evaluation, including a stress test, which was unremarkable. He was started on Metoprolol and a statin. He underwent a CT chest which did not reveal any pulmonary emboli. He was discharged home and will follow up with his PCP for follow up of incidental liver lesion and mediastinal node. Labs and Pending Lab Test: Laboratory Tests 02/14/19 05:10: White Blood Count 7.1, Red Blood Count 5.02, Hemoglobin 14.0, Hematocrit 42, Mean Corpuscular Volume 83, Mean Corpuscular Hemoglobin 28, Mean Corpuscular Hemoglobin Concent 34, Red Cell Distribution Width 13.5, Platelet Count 218, Mean Platelet Volume 10.5H, Erythrocyte Sedimentation Rate 6, Sodium Level 136, Potassium Level 4.2, Chloride Level 103, Carbon Dioxide Level 24, Anion Gap 9, Blood Urea Nitrogen 14, Creatinine 0.81, Estimat Glomerular Filtration Rate > 60, BUN/Creatinine Ratio 17, Glucose Level 208H, Calcium Level 9.0, Corrected Calcium 9.0, Total Bilirubin 0.7, Aspartate Amino Transf (AST/SGOT) 30, Alanine Aminotransferase (ALT/SGPT) 77H, Alkaline Phosphatase 63, Total Protein 6.5, Albumin 4.0 Home Meds Active Metoprolol Tartrate 25 Mg Tablet 12.5 Mg PO BID 90 Days Lipitor (Atorvastatin Calcium) 40 Mg Tablet 40 Mg PO HS 90 Days Reported Metformin HCl ER (Metformin HCl) 500 Mg Tab.er.24h 2,000 Mg PO DAILY TAKES 4 (500MG) TABLETS Tresiba Flextouch U-100 (Insulin Degludec) 100 Unit/1 Ml Insuln.pen 18 Unit SQ HS Januvia (Sitagliptin Phosphate) 100 Mg Tablet 100 Mg PO DAILY Assessment/Pt Instructions See "D/C instructions" Discharge Planning: <30 minutes discharge planning Discharge Instructions Discharge Diet: No Restrictions Activity as Tolerated: Yes Consultations Cardiology Discharge Physical Examination Vital Signs Vital Signs Date Time Temp Pulse Resp B/P (MAP) Pulse Ox O2 Delivery O2 Flow Rate FiO2 02/14/19 17:12 02/14/19 15:49 35.8 64 16 98 Room Air General Appearance: No Apparent Distress, WD/WN, Anxious HEENT: PERRL/EOMI, Pharynx Normal Respiratory: Lungs Clear, Normal Breath Sounds, No Respiratory Distress Cardiovascular: Regular Rate, Rhythm, No Edema, No Murmur Gastrointestinal: Normal Bowel Sounds, Non Tender, Soft Extremity: Normal Inspection, Non Tender, No Calf Tenderness, No Pedal Edema Skin: Normal Color, Warm/Dry Neurologic/Psychiatric: Alert, Oriented x3 Allergies: Coded Allergies: Penicillins (Verified Allergy, Unknown, Hives, 02/12/19) PER PATIENT REPORT lisinopril (Verified Allergy, Unknown, Hives, 02/12/19) PATIENT REPORTS HIVES Discharge Summary Date of Admission Feb 12, 2019 at 13:50 Date of Discharge Feb 14, 2019 at 17:34 Discharge Date: Feb 14, 2019 Discharge Time: 17:00 Admission Diagnosis Chest pain Consults/Procedures Consulations Cardiology Discharge Diagnosis Chest pain -Troponins remain normal -EKG sinus rhythm without ST-T changes -Cardiology consulted, appreciate recommendations -TTE normal, incidental liver lesion noted -D-dimer negative -CT chest with contrast to further evaluate for PE -Possible stress test tomorrow HTN -BP elevated on admission -Started on Lisinopril and Metoprolol Liver lesion Elevated LFTs -TTE with incidental liver lesion -Follow up CT, consider further imaging -LFTs mildly elevated, reportedly history of fatty liver T2DM -Levemir 10 units nightly -SSI DVT prophylaxis: Lovenox (1) Chest pain Status: Acute Qualifiers: Qualified Codes: R07.9 - Chest pain, unspecified (2) HTN (hypertension) Status: Chronic (3) T2DM (type 2 diabetes mellitus) Status: Chronic Qualifiers: (4) Liver lesion Status: Acute (5) Elevated LFTs Status: Acute Clinical Quality Measures AMI/AHF: ASA po Prior to arrival: Yes (81MG) DVT/VTE Risk/Contraindication: Risk Factor Score Per Nursin RFS Level Per Nursing on Admit: 2=Moderate ANAHI PADILLA MD Feb 14, 2019 20:53
== END 2019-02-14 17:34 | disposition home or self-care (01) ==
LOC: ER 11:27 → 4TH 13:50
PROVIDERS: ADMIT Family Medicine; ATTEND Family Medicine
DX: R07.9 Chest pain, unspecified (principal); K76.0 Fatty (change of) liver, not elsewhere classified; I10 Essential (primary) hypertension; E11.9 Type 2 diabetes mellitus without complications; K76.89 Other specified diseases of liver; Z79.84 Long term (current) use of oral hypoglycemic drugs; Z88.0 Allergy status to penicillin; Z88.8 Allergy status to other drugs, medicaments and biological substances; F17.220 Nicotine dependence, chewing tobacco, uncomplicated; Z82.49 Family history of ischemic heart disease and other diseases of the circulatory system
CPT/HCPCS: 36415; 71045; 71275; 78452; 80053; 80061; 80306; 81000; 82962; 83036; 83735; 83874; 83880; 84484; 85025; 85027; 85379; 85610; 85652; 85730; 93005; 93017; 93041; 93306; G0378